=== PATIENT | female | born 1990 | race Caucasian/White ===

== ENCOUNTER 2018-03-22 17:30 | Emergency (ER) | payer OTHER ==
[2018-03-22 17:54] VITALS: RESP 18
--- NOTE | 2018-03-22 19:54 | ED ---
Headache HPI - General Chief Complaint: Headache Stated Complaint: Headache/pressure in eyes/arm going numb Time Seen by Provider: 03/22/18 19:11 Mode of arrival: ambulatory Limitations: no limitations - History of Present Illness Initial Comments: 27-year-old female patient presents to the emergency department today for evaluation of headache and pressure behind her eyes. She is also reporting visual disturbance. States this has been going on for the last month with a black dye in her right eye. Patient states that she did see an vp data for this and was diagnosed with some right optic nerve swelling. States that over the last few days the headaches 7 worsening in severity and she now has a visual disturbance in the left eye as well. Patient states that her vision is becoming increasingly blurred. States that she has also lost about 15 pounds without trying. States that she is still eating per usual. She denies abdominal pain, nausea, vomiting, constipation, or diarrhea. She denies any numbness or tingling, weakness, or dizziness. Patient denies any recent rash, fever, chills, shortness breath, chest pain, back pain, hematuria, dysuria, urinary urgency, urinary frequency, or any other complaints. - Related Data Home Medications Medication Instructions Recorded Confirmed No Known Home Medications [No 09/02/16 03/22/18 Known Home Medications] Allergies Allergy/AdvReac Type Severity Reaction Status Date / Time No Known Allergies Allergy Verified 03/22/18 19:09 Review of Systems ROS Statement: Those systems with pertinent positive or pertinent negative responses have been documented in the HPI. ROS Other: All systems not noted in ROS Statement are negative. Past Medical History Past Medical History: No Reported History Additional Past Medical History / Comment(s): molar in past History of Any Multi-Drug Resistant Organisms: None Reported Past Surgical History: Adenoidectomy, Tonsillectomy Past Psychological History: No Psychological Hx Reported Smoking Status: Never smoker Past Alcohol Use History: None Reported Past Drug Use History: None Reported General Exam Limitations: no limitations General appearance: alert, in no apparent distress, other (This is a well- developed, well-nourished adult female patient in no acute distress. Vital signs upon presentation are temperature 98.4F, pulse 90, respirations 18, blood pressure 116/70, pulse ox 100% on room air.) Head exam: Present: atraumatic, normocephalic, normal inspection Eye exam: Present: normal appearance, PERRL, EOMI. Absent: scleral icterus, conjunctival injection, nystagmus, periorbital swelling ENT exam: Present: normal exam, normal oropharynx, mucous membranes moist. Absent: TM's normal bilaterally (Right tympanic membrane is obscured by wax) Neck exam: Present: normal inspection. Absent: tenderness, meningismus, lymphadenopathy Respiratory exam: Present: normal lung sounds bilaterally. Absent: respiratory distress, wheezes, rales, rhonchi, stridor Cardiovascular Exam: Present: regular rate, normal rhythm, normal heart sounds. Absent: systolic murmur, diastolic murmur, rubs, gallop, clicks GI/Abdominal exam: Present: soft, normal bowel sounds. Absent: distended, tenderness, guarding, rebound, rigid Neurological exam: Present: alert, oriented X3, CN II-XII intact Psychiatric exam: Present: normal affect, normal mood Skin exam: Present: warm, dry, intact, normal color. Absent: rash Course Vital Signs 03/22/18 17:50 Temperature 98.4 F Pulse Rate 90 Respiratory 18 Rate Blood Pressure 116/70 O2 Sat by Pulse 100 Oximetry Medical Decision Making - Medical Decision Making 27-year-old female patient presented to the emergency department today for complaints of visual disturbance and headaches. Physical examination is unremarkable. Patient is neurologically intact. I did offer IV fluids and medication for symptom relief however patient refused at this time. Did perform computed tomography scan of the brain which showed no acute inter cranial abnormalities. Did discuss findings of the computed tomography scan. She'll be discharged home to follow-up with neurology and continue her appointments with ophthalmology. She is instructed to return here immediately for any new, worsening, or concerning symptoms. She verbalizes understanding and agrees with this plan. - Radiology Data Radiology results: report reviewed, image reviewed CT of the brain is performed without contrast. Ventricles and sulci appear normal. There is no mass effect or midline shift. There is no sign of intracranial hemorrhage. The calvarium is intact. Parent nasal sinuses appear normal. There is no evidence of retro-orbital mass. Remainder of exam is unremarkable. Conclusion by Dr. Soares shows normal computed tomography scan of the brain. Disposition Clinical Impression: Frequent headaches, Visual disturbance Disposition: HOME SELF-CARE Condition: Good Instructions: Acute Headache (ED) Additional Instructions: Increase fluids. Follow up with both opthalmologist. Follow up with neurologist. Return here immediately for any new, worsening, or concerning symptoms. Is patient prescribed a controlled substance at d/c from ED?: No Referrals: None,Stated [Primary Care Provider] - 1-2 days Jerica Senior MD [STAFF PHYSICIAN] - 1-2 days Time of Disposition: 20:26
--- NOTE | 2018-03-22 20:04 | CT ---
EXAMINATION TYPE: CT brain wo con DATE OF EXAM: 03/22/2018 COMPARISON: NONE HISTORY: LUONG, eye pressure CT DLP: 978.2 mGycm. Automated Exposure Control for Dose Reduction was Utilized. TECHNIQUE: CT scan of the head is performed without contrast. FINDINGS: Ventricles and sulci appear normal. There is no mass effect nor midline shift. There is n o sign of intracranial hemorrhage. The calvarium is intact. Paranasal sinuses appear normal. There is no evidence of retro-orbital mass. The remainder of exam is unremarkable. conclusion Normal CT scan of the brain.
[2018-03-22 20:39] VITALS: BP 105/61; PULSE 63; TEMP 97.7
== END 2018-03-22 20:53 | disposition home or self-care (01) ==
LOC: EC 17:30
DX: R51 Headache (principal); H53.9 Unspecified visual disturbance
CPT/HCPCS: 70450; 99284

== ENCOUNTER 2019-09-08 19:43 | Emergency (ER) | payer OTHER ==
[2019-09-08 19:52] VITALS: TEMP 97.9
[2019-09-08] MEDS ORDERED: PYRIDOXINE 100 MG/ML 1 ML VIAL IVP STA ×2 (20:09)
[2019-09-08] MEDS ORDERED: SODIUM CHLORIDE 0.9% 1,000 ML IV STA (20:22)
--- NOTE | 2019-09-08 20:30 | ED ---
General Adult HPI - General Chief complaint: Nausea/Vomiting/Diarrhea Stated complaint: 7 wks /vomiting Time Seen by Provider: 09/08/19 20:02 Source: patient, RN notes reviewed, old records reviewed Mode of arrival: ambulatory Limitations: no limitations - History of Present Illness Initial comments: 30-year-old female patient who is reportedly a presents to ED for chief complaint of nausea and vomiting. Patient reports that she believes that she is approximately 7 weeks . Patient reports that for the last 2 days she's been having nausea and vomiting. Patient was that she has not been able to keep much down. When she stands up abruptly she does feel somewhat dizzy. Feels fine at baseline. Denies any abdominal pain, vaginal bleeding. Denies any dysuria. Denies any concern for STI. Systemic: Pt denies fatigue, fever/chills, rash. Pt denies weakness, night sweats, weight loss. Neuro: Pt denies headache, visual disturbances, syncope or pre-syncope. HEENT: Pt denies ocular discharge or irritation, otalgia, rhinorrhea, pharyngitis or notable lymphadenopathy. Cardiopulmonary: Pt denies chest pain, SOB, heart palpitations, dyspnea on exertion. Abdominal/GI: Pt denies abdominal pain, diarrhea. : Pt denies dysuria, burning w/ urination, frequency/urgency. Denies new onset urinary or bowel incontinence. MSK: Pt denies myalgia, loss of strength or function in extremities. Neuro: Pt denies new onset weakness, paresthesias. - Related Data Previous Rx's Medication Instructions Recorded Cephalexin [Keflex] 500 mg PO Q12HR 7 Days #14 cap 09/08/19 Doxylamine/Pyridoxine HCl (B6) 1 tab PO HS PRN 20 Days #20 tab 09/08/19 [Diclegis Dr 10-10 mg Tablet] Pnv No.95/Ferrous Fum/Folic AC 1 each PO Q24HR 30 Days #30 tablet 09/08/19 [ Multivitamin Tablet] Allergies Allergy/AdvReac Type Severity Reaction Status Date / Time No Known Allergies Allergy Verified 09/08/19 19:52 Review of Systems ROS Statement: Those systems with pertinent positive or pertinent negative responses have been documented in the HPI. ROS Other: All systems not noted in ROS Statement are negative. Past Medical History Past Medical History: No Reported History Additional Past Medical History / Comment(s): molar in past History of Any Multi-Drug Resistant Organisms: None Reported Past Surgical History: Adenoidectomy, Tonsillectomy Past Psychological History: No Psychological Hx Reported Smoking Status: Never smoker Past Alcohol Use History: None Reported Past Drug Use History: None Reported General Exam - General Exam Comments Initial Comments: Constitutional: NAD, AOX3, Pt has pleasant affect. HEENT: NC/AT, trachea midline, neck supple, no lymphadenopathy. Posterior pharynx non erythematous, without exudates. External ears appear normal, without discharge. Mucous membranes moist. Eyes PERRLA, EOM intact. There is no scleral icterus. No pallor noted. Cardiopulmonary: RRR, no murmurs, rubs or gallops, no JVD noted. Lungs CTAB in anterior and posterior nichols. No peripheral edema. Abdominal exam: Abdomen soft and non-distended. Abdomen non-tender to palpation in all 4 quadrants. Bowel sounds active in LLQ. No hepatosplenomegaly. No ecchymosis Neuro: CN II-XII grossly intact. No nuchal rigidity. No raccon eyes, no mcelroy sign, no hemotympanum. No cervical spinal tenderness. MSK: No posterior calf tenderness bilaterally, homans sign negative bilaterally. Posterior tibialis and radial pulse +2 bilaterally. Sensation intact in upper and lower extremities. Full active ROM in upper and lower extremities, 5/5 stregnth. Limitations: no limitations Course Vital Signs 09/08/19 09/08/19 09/08/19 19:48 20:39 22:38 Temperature 97.9 F 97.9 F Pulse Rate 87 84 84 Respiratory 18 16 16 Rate Blood Pressure 111/69 106/65 106/65 O2 Sat by Pulse 100 99 99 Oximetry Medical Decision Making - Medical Decision Making 30-year-old female patient who is reportedly a presents to ED for chief complaint of nausea and vomiting. Patient reports that she believes that she is approximately 7 weeks . Patient reports that for the last 2 days she's been having nausea and vomiting. Patient was that she has not been able to keep much down. When she stands up abruptly she does feel somewhat dizzy. Feels fine at baseline. Denies any abdominal pain, vaginal bleeding. Denies any dysuria. Denies any concern for STI. She was in stable, afebrile. Physical exam did not display acute pathology. Abdomen soft, nontender. EDC, CMP noncompressive. UA displayed large leukocyte Estrace 12 white blood cells. Bedside ultrasound display intrauterine . pole was identified. Patient was started on Keflex. Patient discharged with diclegis and Keflex. As well as vitamins. PT will f/u with land acquisition manager on tuesday. Case discussed with Dr. Palma. - Lab Data Result diagrams: 09/08/19 20:30 09/08/19 20:30 Lab Results 09/08/19 09/08/19 09/08/19 Range/Units 20:30 20:30 21:30 WBC 12.9 H (3.8-10.6) k/uL RBC 4.34 (3.80-5.40) m/uL Hgb 13.2 (11.4-16.0) gm/dL Hct 39.7 (34.0-46.0) % MCV 91.5 (80.0-100.0) fL MCH 30.5 (25.0-35.0) pg MCHC 33.3 (31.0-37.0) g/dL RDW 11.6 (11.5-15.5) % Plt Count 328 (150-450) k/uL Neutrophils % 71 % Lymphocytes % 21 % Monocytes % 5 % Eosinophils % 2 % Basophils % 1 % Neutrophils # 9.2 H (1.3-7.7) k/uL Lymphocytes # 2.7 (1.0-4.8) k/uL Monocytes # 0.6 (0-1.0) k/uL Eosinophils # 0.2 (0-0.7) k/uL Basophils # 0.1 (0-0.2) k/uL Sodium 139 (137-145) mmol/L Potassium 4.1 (3.5-5.1) mmol/L Chloride 106 (98-107) mmol/L Carbon Dioxide 24 (22-30) mmol/L Anion Gap 9 mmol/L BUN 13 (7-17) mg/dL Creatinine 0.45 L (0.52-1.04) mg/dL Est GFR (CKD-EPI)AfAm >90 (>60 ml/min/1.73 sqM) Est GFR (CKD-EPI)NonAf >90 (>60 ml/min/1.73 sqM) Glucose 101 H (74-99) mg/dL Calcium 9.3 (8.4-10.2) mg/dL Urine Color Urine Appearance (Clear) Urine pH (5.0-8.0) Ur Specific [place] (1.001-1.035) Urine Protein (Negative) Urine Glucose (UA) (Negative) Urine Ketones (Negative) Urine Blood (Negative) Urine Nitrite (Negative) Urine Bilirubin (Negative) Urine Urobilinogen (<2.0) mg/dL Ur Leukocyte Esterase (Negative) Urine RBC (0-5) /hpf Urine WBC (0-5) /hpf Ur Squamous Epith Cells (0-4) /hpf Urine Mucus (None) /hpf Urine HCG, Qual Detected (Not Detectd) 09/08/19 Range/Units 21:30 WBC (3.8-10.6) k/uL RBC (3.80-5.40) m/uL Hgb (11.4-16.0) gm/dL Hct (34.0-46.0) % MCV (80.0-100.0) fL MCH (25.0-35.0) pg MCHC (31.0-37.0) g/dL RDW (11.5-15.5) % Plt Count (150-450) k/uL Neutrophils % % Lymphocytes % % Monocytes % % Eosinophils % % Basophils % % Neutrophils # (1.3-7.7) k/uL Lymphocytes # (1.0-4.8) k/uL Monocytes # (0-1.0) k/uL Eosinophils # (0-0.7) k/uL Basophils # (0-0.2) k/uL Sodium (137-145) mmol/L Potassium (3.5-5.1) mmol/L Chloride (98-107) mmol/L Carbon Dioxide (22-30) mmol/L Anion Gap mmol/L BUN (7-17) mg/dL Creatinine (0.52-1.04) mg/dL Est GFR (CKD-EPI)AfAm (>60 ml/min/1.73 sqM) Est GFR (CKD-EPI)NonAf (>60 ml/min/1.73 sqM) Glucose (74-99) mg/dL Calcium (8.4-10.2) mg/dL Urine Color Yellow Urine Appearance Cloudy H (Clear) Urine pH 5.5 (5.0-8.0) Ur Specific [place] 1.024 (1.001-1.035) Urine Protein Negative (Negative) Urine Glucose (UA) Negative (Negative) Urine Ketones Negative (Negative) Urine Blood Negative (Negative) Urine Nitrite Negative (Negative) Urine Bilirubin Negative (Negative) Urine Urobilinogen <2.0 (<2.0) mg/dL Ur Leukocyte Esterase Large H (Negative) Urine RBC 1 (0-5) /hpf Urine WBC 12 H (0-5) /hpf Ur Squamous Epith Cells 9 H (0-4) /hpf Urine Mucus Few H (None) /hpf Urine HCG, Qual (Not Detectd) - EKG Data -: EKG Interpreted by Me (and Dr. Palma) EKG Comments: Ventricular rate 98, FL interval 168, QRS 88, QT/QTC 336/428. Normal sinus rhythm. T wave abnormality consider anterior ischemia. No concern for acute ischemia. Disposition Clinical Impression: Nausea and vomiting during , Asymptomatic bacteriuria Disposition: HOME SELF-CARE Condition: Stable Instructions (If sedation given, give patient instructions): Nausea and Vomiting in (ED) Additional Instructions: Patient to adhere to previously discussed treatment plan and will take medication(s) as directed. Patient to follow up with PCP in 1-2 days. Patient to return to ED if symptoms do not improve. Follow up with PCP and angle furnaceman tomorrow. Use diclegis as needed for nausea and vomitting. Take keflex as needed. Prescriptions: Doxylamine/Pyridoxine HCl (B6) [Diclegis Dr 10-10 mg Tablet] 1 tab PO HS PRN 20 Days #20 tab PRN Reason: as needed Cephalexin [Keflex] 500 mg PO Q12HR 7 Days #14 cap Pnv No.95/Ferrous Fum/Folic AC [ Multivitamin Tablet] 1 each PO Q24HR 30 Days #30 tablet Is patient prescribed a controlled substance at d/c from ED?: No Referrals: None,Stated [Primary Care Provider] - 1-2 days
[2019-09-08 20:41] VITALS: BP 106/65; PULSE 84; RESP 16
[2019-09-08 22:13] LABS: African American GFR (CKD) >90 (>60 ml/min/1.73 sqM); Anion Gap 9 mmol/L; Blood Urea Nitrogen 13 mg/dL (7-17); Calcium 9.3 mg/dL (8.4-10.2); Carbon Dioxide 24 mmol/L (22-30); Chloride 106 mmol/L (98-107); Glucose 101 mg/dL (74-99); Potassium 4.1 mmol/L (3.5-5.1); Sodium 139 mmol/L (137-145)
[2019-09-08 22:16] LABS: Appearance,Urine Cloudy (Clear); Bilirubin,Urine Negative (Negative); Blood,Urine Negative (Negative); Color,Urine Yellow; Glucose,Urine (UA) Negative (Negative); Ketones,Urine Negative (Negative); Leukocyte Esterase,Urine Large (Negative); Mucus,Urine Few /hpf; Nitrite,Urine Negative (Negative); PH, Urine 5.5 (5.0-8.0); Protein,Urine Negative (Negative); RBC,Urine 1 /hpf (0-5); Specific Gravity,Urine 1.024 (1.001-1.035); Squamous Epithelial Cell,Urine 9 /hpf (0-4); Urobilinogen,Urine <2.0 mg/dL (<2.0); WBC,Urine 12 /hpf (0-5)
[2019-09-08 22:20] LABS: Basophils # (A) 0.1 k/uL (0-0.2); Basophils % (A) 1 %; Eosinophils # (A) 0.2 k/uL (0-0.7); Eosinophils % (A) 2 %; HCT 39.7 % (34.0-46.0); HGB 13.2 gm/dL (11.4-16.0); Lymphocytes # (A) 2.7 k/uL (1.0-4.8); Lymphocytes % (A) 21 %; MCH 30.5 pg (25.0-35.0); MCHC 33.3 g/dL (31.0-37.0); MCV 91.5 fL (80.0-100.0); Mean Platelet Volume 6.9; Monocytes # (A) 0.6 k/uL (0-1.0); Monocytes % (A) 5 %; Neutrophils # (A) 9.2 k/uL (1.3-7.7); Neutrophils % (A) 71 %; Platelet Count 328 k/uL (150-450); RBC 4.34 m/uL (3.80-5.40); RDW 11.6 % (11.5-15.5); WBC 12.9 k/uL (3.8-10.6)
[2019-09-08] MEDS ORDERED: CEPHALEXIN 500 MG CAP PO STA (22:28)
[2019-09-08] MEDS ORDERED: CEPHALEXIN 500MG STARTER PACK 4 CAP BTL PO STA (22:28)
== END 2019-09-08 23:02 | disposition home or self-care (01) ==
LOC: EC 19:43
DX: O21.9 Vomiting of pregnancy, unspecified (principal); O99.89 Other specified diseases and conditions complicating pregnancy, childbirth and the puerperium; R82.71 Bacteriuria; R42 Dizziness and giddiness; R19.7 Diarrhea, unspecified; Z3A.00 Weeks of gestation of pregnancy not specified
CPT/HCPCS: 36415; 93005; 80048; 85025; 81001; 81025; 99284; 96374; 96361; J3415

== ENCOUNTER → 2019-09-28 | Outpatient (CLI) | payer OTHER ==
--- NOTE | 2019-09-28 15:41 | US ---
EXAMINATION TYPE: Transabdominal DATE OF EXAM: 09/28/2019 3:26 PM COMPARISON: NONE CLINICAL HISTORY: Z34.80 For Dates. EXAM PERFORMED: Transabdominal (TA) EXAM MEASUREMENTS: GESTATIONAL AGE / DATING Physician Established: Not yet established Dates by LMP: LMP unknown Dates by First Scan: No previous this is first scan Dates by Current Scan for: (9 weeks/4 days) EDC: 04/28/20 MATERNAL ANATOMY Uterus: 9.8 x 8.3 x 8.0cm Right Ovary: 3.3 x 1.8 x 1.9cm Left Ovary: 3.0 x 2.0 x 2.1cm Post CDS / Adnexa: wnl Presence of free fluid: no GESTATION / SURVEY CRL: 2.7cm ( 9 weeks/4 days) Yolk Sac (normal less than 6mm): 3mm Heart Rate: 166 bpm Rhythm: Normal IUP: Viable IUP Date of LMP: unknown Beta HcG (if available): Not available at this time IMPRESSION: Single live intrauterine with a current sonographic age of 9 weeks and 4 days a nd estimated date of delivery of 04/28/2020.
== END | disposition home or self-care (01) ==
LOC: RADUSWWP 14:55
PROVIDERS: ATTEND Obstetrics & Gynecology
DX: Z34.81 Encounter for supervision of other normal pregnancy, first trimester (principal); Z3A.09 9 weeks gestation of pregnancy
CPT/HCPCS: 76801

== ENCOUNTER 2022-08-17 11:56 | Emergency (ER) | payer OTHER ==
[2022-08-17 12:04] VITALS: BP 116/78; PULSE 69; RESP 20; TEMP 98.2
--- NOTE | 2022-08-17 12:50 | ED ---
Allergic Reaction HPI - General Chief complaint: Allergic Reaction Stated complaint: rt foot spider bite Time Seen by Provider: 08/17/22 12:29 Source: patient, RN notes reviewed Mode of arrival: ambulatory Limitations: no limitations - History of Present Illness Initial Comments: 32-year-old female presents emergency Department chief complaint right foot and ankle swelling. Patient states started several days ago. Patient states she was bit by something a small white bump started turning red with increase in swelling down into her distal foot, distal leg. Patient states it is very itchy, painful hot to the touch. Patient states is moderate redness and swelling. - Related Data Previous Rx's Medication Instructions Recorded Cephalexin [Keflex] 500 mg PO Q12HR 7 Days #14 cap 09/08/19 Doxylamine Succinate/Vit B6 1 tab PO HS PRN 20 Days #20 tab 09/08/19 [Diclegis Dr 10-10 mg Tablet] Pnv No.95/Ferrous Fum/Folic AC 1 each PO Q24HR 30 Days #30 tablet 09/08/19 [ Multivitamin Tablet] Cephalexin [Keflex] 500 mg PO Q6HR #28 cap 08/17/22 Ibuprofen [Motrin] 600 mg PO Q8HR PRN #30 tab 08/17/22 predniSONE 50 mg PO DAILY #5 tab 08/17/22 Allergies Allergy/AdvReac Type Severity Reaction Status Date / Time No Known Allergies Allergy Verified 08/17/22 12:04 Review of Systems ROS Statement: Those systems with pertinent positive or pertinent negative responses have been documented in the HPI. ROS Other: All systems not noted in ROS Statement are negative. Past Medical History Past Medical History: No Reported History Additional Past Medical History / Comment(s): molar in past History of Any Multi-Drug Resistant Organisms: None Reported Past Surgical History: Adenoidectomy, Tonsillectomy Past Psychological History: No Psychological Hx Reported Smoking Status: Never smoker Past Alcohol Use History: None Reported Past Drug Use History: None Reported General Exam Limitations: no limitations General appearance: alert, in no apparent distress Head exam: Present: atraumatic, normocephalic, normal inspection Respiratory exam: Present: normal lung sounds bilaterally. Absent: respiratory distress, wheezes, rales, rhonchi, stridor Cardiovascular Exam: Present: regular rate, normal rhythm, normal heart sounds. Absent: systolic murmur, diastolic murmur, rubs, gallop, clicks Extremities exam: Present: other (Right foot ankle swelling, redness with warmth palpation, tenderness with palpation) Neurological exam: Present: alert Skin exam: Present: warm, dry, intact, normal color. Absent: rash Course Vital Signs 08/17/22 12:02 Temperature 98.2 F Pulse Rate 69 Respiratory 20 Rate Blood Pressure 116/78 O2 Sat by Pulse 100 Oximetry Medical Decision Making - Medical Decision Making 32-year-old presented for right foot and ankle swelling. This appears to be related to most ALLERGIC reaction but there is some concern for possible ascending infection and placed on antibiotics. Patient will have recheck return parameters were discussed. Disposition Clinical Impression: Allergic reaction, Insect bite Disposition: HOME SELF-CARE Condition: Stable Instructions (If sedation given, give patient instructions): Insect Bite or Sting (ED) Additional Instructions: Please return to the Emergency Department if symptoms worsen or any other concerns. Prescriptions: Cephalexin [Keflex] 500 mg PO Q6HR #28 cap predniSONE 50 mg PO DAILY #5 tab Is patient prescribed a controlled substance at d/c from ED?: No Referrals: None,Stated [Primary Care Provider] - 1-2 days Time of Disposition: 12:50
== END 2022-08-17 13:08 | disposition home or self-care (01) ==
LOC: EC 11:56
DX: S90.561A Insect bite (nonvenomous), right ankle, initial encounter (principal); T78.40XA Allergy, unspecified, initial encounter; W57.XXXA Bitten or stung by nonvenomous insect and other nonvenomous arthropods, initial encounter
CPT/HCPCS: 99283